=== PATIENT | female | born 1950 | race Caucasian/White ===

== ENCOUNTER → 2016-04-30 | Outpatient (CLI) | payer MEDICARE, BC ==
[~2016-04-30] MED LIST: BENADRYL25 M2; CALCIUM 600MG+D1 TAB PO; CARDI-OMEGA1000 MG PO; GLUCOSAMINE & C1 CA1 PO; HCTZ 25MG TAB25 MG; HCTZ 25MG TAB25 MG PO; IBU600 MG; MOTRIN 800800 MG/TAB PO; MULTI VITAMINS1 TAB PO; MULTIPLE VITAMI1 CAP; OMEGA-3 FISH1200 MG; PREMARIN .3MG0.3 MG; PREMARIN VAG42.5 GM VG; SYNTHROID0.1 MG/TAB PO; SYNTHROID0.125 MG/T; TIROSINT125 MCG; VITAMIN C500 MG PO; VITAMIN D1000 IU; VITAMIN D1000 IU PO; ZANTAC 150MG T150 MG
== END ==
LOC: MC.RAD 13:40
DX: Z12.31 Encounter for screening mammogram for malignant neoplasm of breast (principal); N64.89 Other specified disorders of breast

== ENCOUNTER → 2016-05-04 | Outpatient (CLI) | payer MEDICARE, BC | LOC: MC.RAD 13:30 | DX: R92.8 Other abnormal and inconclusive findings on diagnostic imaging of breast (principal) ==

== ENCOUNTER → 2016-10-25 | Outpatient (CLI) | payer MEDICARE, BC | LOC: MC.RAD 12:55 | DX: R92.2 Inconclusive mammogram (principal) ==

== ENCOUNTER → 2017-05-20 | Outpatient (CLI) | payer MEDICARE, BC | LOC: MC.RAD 14:36 | DX: Z12.31 Encounter for screening mammogram for malignant neoplasm of breast (principal) ==

== ENCOUNTER → 2017-08-03 | Outpatient (CLI) | payer MEDICARE, BC | LOC: COL.VAS 08:46 | DX: I34.0 Nonrheumatic mitral (valve) insufficiency (principal); R93.1 Abnormal findings on diagnostic imaging of heart and coronary circulation ==

== ENCOUNTER 2017-11-14 03:34 | Emergency (ER) | payer MEDICARE, BC ==
[~2017-11-14] VITALS: Ht 167.6 cm; Wt 81.8 kg
[2017-11-14 03:39] VITALS: TEMP 97.6
[2017-11-14] MEDS ORDERED: SYNTHROID0.137 MG PO (04:07)
[2017-11-14] MEDS ORDERED: IBU600 MG PO (04:08)
[2017-11-14] MEDS ORDERED: ZANTAC 150MG T150 MG PO (04:08)
[2017-11-14] MEDS ORDERED: TYLENOL W/COD1 UDTAB PO (06:45)
[2017-11-14] MEDS ORDERED: NORCO 325 MG-51 TAB PO (07:14)
[2017-11-14 07:22] VITALS: BP 132/63; PULSE 77
== END 2017-11-14 07:15 | disposition home or self-care (01) ==
LOC: COL.ER 03:34
DX: S43.005A Unspecified dislocation of left shoulder joint, initial encounter (principal); E03.9 Hypothyroidism, unspecified; W01.0XXA Fall on same level from slipping, tripping and stumbling without subsequent striking against object, initial encounter; Y92.009 Unspecified place in unspecified non-institutional (private) residence as the place of occurrence of the external cause
CPT/HCPCS: J1170; J1885; J2405; J2704; J3010; J7120

== ENCOUNTER 2018-02-15 15:45 | Outpatient (RCR) | payer MEDICARE, BC ==
[~2018-02-15 15:45] MED LIST changes: +IBU600 MG PO; +NORCO 325 MG-51 TAB PO; +SYNTHROID0.137 MG PO; +TYLENOL W/COD1 UDTAB PO; +ZANTAC 150MG T150 MG PO
== END 2018-02-17 16:26 | disposition home or self-care (01) ==
LOC: WSC 15:45
DX: S43.015D Anterior dislocation of left humerus, subsequent encounter (principal)
CPT/HCPCS: G8987-GP; G8988-GP

== ENCOUNTER 2018-02-17 15:20 | Outpatient (RCR) | payer MEDICARE, BC | END 2018-02-17 16:29 | disposition home or self-care (01) | LOC: WSPT 15:20 | DX: Z01.818 Encounter for other preprocedural examination (principal) | CPT/HCPCS: G8984-GP; G8985-GP ==

== ENCOUNTER 2018-05-22 09:00 | Outpatient (RCR) | payer MEDICARE, BC | END 2018-05-28 | disposition home or self-care (01) | LOC: WSC | DX: S43.005D Unspecified dislocation of left shoulder joint, subsequent encounter (principal) | CPT/HCPCS: G8984-GP; G8985-GP ==

== ENCOUNTER → 2018-06-19 | Outpatient (CLI) | payer MEDICARE, BC | LOC: MC.RAD 09:05 | DX: Z12.31 Encounter for screening mammogram for malignant neoplasm of breast (principal) ==

== ENCOUNTER 2018-07-12 09:45 | Outpatient (RCR) | payer MEDICARE, BC | END 2018-08-27 | disposition still patient (30) | LOC: WSC | DX: Z47.89 Encounter for other orthopedic aftercare (principal) ==

== ENCOUNTER 2019-01-16 12:59 | Outpatient (RCR) | payer MEDICARE, BC | END 2019-02-13 13:40 | disposition home or self-care (01) | LOC: WSC 12:59 | DX: Z48.89 Encounter for other specified surgical aftercare (principal); Z98.890 Other specified postprocedural states ==

== ENCOUNTER → 2019-10-03 | Outpatient (CLI) | payer MEDICARE, BC | LOC: MC.RAD 13:49 | DX: Z12.31 Encounter for screening mammogram for malignant neoplasm of breast (principal) ==

== ENCOUNTER → 2019-10-04 | Outpatient (CLI) | payer MEDICARE, BC | LOC: COL.CARD 07:21 | DX: R00.2 Palpitations (principal) ==

== ENCOUNTER 2020-07-12 13:32 | Inpatient (IN) | payer MEDICARE, BC ==
[~2020-07-12] VITALS: Ht 167.6 cm; Wt 73.2 kg
[2020-07-12] VITALS (297 sets, daily range): BP systolic 102–128; BP diastolic 69–73; PULSE 80–130; TEMP 98–98.2; O2SAT 81–100
[2020-07-12 14:11] LABS: BASO # 0.1 (0.0-0.2); BASO % 1.6 % (0.0-2.0); EOS # 0.6 (0.0-0.7); EOS % 7.4 % (0-4.0); GRAN # 3.3 (1.4-6.5); GRAN % 41.4 % (42.2-75.2); HEMATOCRIT 39.5 % (37.0-47.0); HEMOGLOBIN 12.8 g/dl (12.5-16.0); LYMPH # 3.3 (1.2-3.4); LYMPH % 41.3 % (20.0-51.0); MEAN CELL VOLUME 95 fl (80.0-100.0); MEAN CORPUSCULAR HEMOGLOBIN 31 pg (27.0-31.0); MEAN CORPUSCULAR HGB CONC 32 g/dl (33.0-37.0); MEAN PLATELET VOLUME 10.5 fl (7.4-10.4); MONO # 0.6 (0.1-0.6); PLATELET COUNT 323 K/mm3 (130-400); RED BLOOD COUNT 4.18 M/mm3 (4.10-5.30)
[2020-07-12 14:13] LABS: INR 0.9 (0.8-3.0); PROTHROMBIN TIME 10.1 SECONDS (9.7-12.8)
[2020-07-12 14:16] LABS: PARTIAL THROMBOPLASTIN TIME 29.7 SECONDS (26.0-37.0)
[2020-07-12 14:18] LABS: ALANINE AMINOTRANSFERASE 38 U/L (4-34); ALBUMIN 4.3 gm/dL (3.5-5.0); ALKALINE PHOSPHATASE 149 U/L (50-136); ANION GAP 10 mmol/L (7-16); AST,SGOT 43 U/L (15-37); BILIRUBIN,TOTAL 0.4 mg/dL (0.0-1.0); BLOOD UREA NITROGEN 27 mg/dL (7-17); CALCIUM 10.2 mg/dL (8.4-10.2); CARBON DIOXIDE 26 mmol/L (22-30); CHLORIDE 102 mmol/L (98-107); CREATININE, serum 0.97 (0.52-1.25); GLUCOSE 113 mg/dL (74-106); POTASSIUM 3.8 mmol/L (3.4-5.0); SODIUM 138 mmol/L (137-145); TOTAL PROTEIN 8.4 gm/dL (6.4-8.2)
[2020-07-12] MEDS ORDERED: PEPCID 20MG TAB20 MG PO (14:23)
[2020-07-12] MEDS ORDERED: LIPITOR 40MG TA40 MG PO (14:24)
[2020-07-12] MEDS ORDERED: MELATONIN5 M1 SL (14:25)
[2020-07-12] MEDS ORDERED: TYLENOL 500MG500 MG PO (14:25)
[2020-07-12 14:39] LABS: TROPONIN-I < 0.012 ng/mL (0.000-0.035)
--- NOTE | 2020-07-12 17:15 | NUR ---
Patient transported from ER via cart. Ambulated to bed with assistance of cane. Eyeglasses in place. Patient is alert and oriented. at bedside. Patient denies any pain or discomfort at this time. Cardizem drip infusing into right AC at max dose of 15mg. Heart rate ranges from 90-130's at this time. Heart sounds irregular, lung sounds clear bilaterally, bowel sounds audible. SpO2 100% on room air. Patient states she is hungry, dinner tray ordered. Call abad within reach, all safety maintained. Will continue to monitor.
[2020-07-13] VITALS (378 sets, daily range): BP systolic 118–133; BP diastolic 61–78; PULSE 67–85; TEMP 98–98.6; O2SAT 52–100
[2020-07-13 05:38] LABS: BASO # 0.1 (0.0-0.2); BASO % 1.4 % (0.0-2.0); EOS # 0.3 (0.0-0.7); EOS % 4.2 % (0-4.0); GRAN # 3.2 (1.4-6.5); GRAN % 43.6 % (42.2-75.2); HEMOGLOBIN 11.6 g/dl (12.5-16.0); LYMPH # 3.1 (1.2-3.4); LYMPH % 42.6 % (20.0-51.0); MEAN CELL VOLUME 94 fl (80.0-100.0); MEAN CORPUSCULAR HEMOGLOBIN 30 pg (27.0-31.0); MEAN CORPUSCULAR HGB CONC 32 g/dl (33.0-37.0); MEAN PLATELET VOLUME 10.1 fl (7.4-10.4); MONO # 0.6 (0.1-0.6); MONO % 8.1 % (1.7-9.3); PLATELET COUNT 282 K/mm3 (130-400); RED BLOOD COUNT 3.82 M/mm3 (4.10-5.30)
[2020-07-13 05:49] LABS: CALCIUM 9.9 mg/dL (8.4-10.2); CREATININE, serum 0.81 (0.52-1.25); POTASSIUM 3.8 mmol/L (3.4-5.0)
[2020-07-13] MEDS ORDERED: SYNTHROID0.125 MG/T PO ×3 (11:12→11:26)
[2020-07-13] MEDS ORDERED: TAMBOCOR 1100 MG/TAB PO (11:26)
[2020-07-13] MEDS ORDERED: TOPROL XL 50MG50 MG PO (11:26)
[2020-07-13] MEDS ORDERED: ELIQUIS 5MG PO (11:26)
--- NOTE | 2020-07-13 11:50 | NUR ---
DISCHARGE PACKET AND EDUCATION REVIEWED. PATIETN AND VERBALIZE UNDERSTANDING. DR. FRANCO'S OFFICE TO CALL HER TOMORROW WITH FOLLOW UP APPT INFORMATION. PATIENT AMBULATES OUT TO CAR FROM ICU ROOM.
== END 2020-07-13 11:45 | disposition home or self-care (01) | DRG 310 ==
LOC: COL.ER 13:32 → ICU 15:32
PROVIDERS: Family Medicine
DX: I48.0 Paroxysmal atrial fibrillation (principal); E03.9 Hypothyroidism, unspecified; I10 Essential (primary) hypertension

== ENCOUNTER → 2020-12-31 | Outpatient (CLI) | payer MEDICARE, BC ==
[~2020-12-31] MED LIST changes: +ELIQUIS 5MG PO; +LIPITOR 40MG TA40 MG PO; +MELATONIN5 M1 SL; +PEPCID 20MG TAB20 MG PO; +SYNTHROID0.125 MG/T PO; +TAMBOCOR 1100 MG/TAB PO; +TOPROL XL 50MG50 MG PO; +TYLENOL 500MG500 MG PO
== END ==
LOC: COL.RAD 07:03
DX: K80.20 Calculus of gallbladder without cholecystitis without obstruction (principal)

== ENCOUNTER 2021-01-07 14:45 | Outpatient (RCR) | payer MEDICARE, BC | END 2021-01-08 | disposition home or self-care (01) | LOC: PT.GENESIS | DX: S76.011A Strain of muscle, fascia and tendon of right hip, initial encounter (principal); E78.5 Hyperlipidemia, unspecified; M17.9 Osteoarthritis of knee, unspecified; K21.9 Gastro-esophageal reflux disease without esophagitis; E03.9 Hypothyroidism, unspecified ==

== ENCOUNTER → 2021-01-09 | Outpatient (CLI) | payer MEDICARE, BC | LOC: MC.RAD 10:22 | DX: Z12.31 Encounter for screening mammogram for malignant neoplasm of breast (principal) ==

== ENCOUNTER 2021-08-14 07:27 | Outpatient (CLI) | payer MEDICARE, BC ==
[~2021-08-14] VITALS: Ht 167.6 cm; Wt 78.2 kg
[2021-08-14 08:34] VITALS: BP 123/73; PULSE 68; TEMP 98.4
[2021-08-14 08:38] LABS: HEMOGLOBIN 11.7 g/dl (12.5-16.0); MEAN CELL VOLUME 97 fl (80.0-100.0); MEAN CORPUSCULAR HEMOGLOBIN 32 pg (27-31); MEAN CORPUSCULAR HGB CONC 33 g/dl (33.0-37.0); MEAN PLATELET VOLUME 9.6 fl (7.4-10.4); PLATELET COUNT 346 K/mm3 (130-400); RED BLOOD COUNT 3.68 M/mm3 (4.10-5.30); REDCELL DISTRIBUTION WIDTH-CV 12.8 % (11.5-14.5)
[2021-08-14 08:39] LABS: HEMATOCRIT 35.5 % (37.0-47.0)
[2021-08-14 08:43] LABS: INR 1.1 (0.8-3.0); PROTHROMBIN TIME 12.5 SECONDS (9.7-12.8)
[2021-08-14 08:50] LABS: CALCIUM 9.3 mg/dL (8.4-10.2); CREATININE, serum 1.06 mg/dL (0.57-1.11); POTASSIUM 3.9 mmol/L (3.5-4.5)
[2021-08-14] MEDS ORDERED: COLACE 100100 MG/CAP PO (09:05)
[2021-08-14] MEDS ORDERED: PRIL40 PO (09:06)
[2021-08-14] MEDS ORDERED: NASACORT OTC NS (09:09)
[2021-08-14] MEDS ORDERED: CALCIUM 600 MG1 EAC2 PO (09:13)
[2021-08-14 10:20] VITALS: BP 119/67; PULSE 64
--- NOTE | 2021-08-14 10:20 | NUR ---
VS RIGHT AFTER PROCEDURE, PT ANSWERS TO NAME, STAFF AT BEDSIDE
[2021-08-14 10:30] VITALS: BP 119/60; PULSE 70
[2021-08-14 10:45] VITALS: BP 119/58; PULSE 62
[2021-08-14 11:00] VITALS: BP 119/56; PULSE 59
[2021-08-14 11:15] VITALS: BP 135/62; PULSE 65
--- NOTE | 2021-08-14 11:26 | NUR ---
IV CATHETHER REMOVED WITH TIP INTACT, PRESSURE APPLIED THEN DRESSED WITH GAUZE AND COBAN. PT TOLERATED SWALLOWING WATER WITHOUT COMPLICATION. PT AMBULATED TO BSC WITHOUT ASSISTANCE, STEADY GAIT WITH CANE. DISCHARGE PAPERWORK DISCUSSED WITH PT AND , VERBALIZED UNDERSTANDING, QUESTIONS ANSWERED. PT DISCHARGED VIA WHEELCHAIR, ESCORTED PT TO CAR. PT TOLERATED PROCEDURE WELL. PT REPORTS NO PAIN.
== END 2021-08-14 11:26 | disposition home or self-care (01) ==
LOC: COL.RAD 07:27
PROVIDERS: Internal Medicine Cardiovascular Disease
DX: I48.0 Paroxysmal atrial fibrillation (principal); E05.90 Thyrotoxicosis, unspecified without thyrotoxic crisis or storm; I10 Essential (primary) hypertension; Z79.01 Long term (current) use of anticoagulants; Z91.81 History of falling
CPT/HCPCS: J2704

== ENCOUNTER 2021-10-07 11:52 | Outpatient (CLI) | payer MEDICARE, BC ==
[~2021-10-07] VITALS: Ht 167.8 cm; Wt 78.4 kg
[2021-10-07] VITALS (8 sets, daily range): BP systolic 117–133; BP diastolic 57–97; PULSE 53–67; TEMP 97.7
[~2021-10-07 11:52] MED LIST changes: +CALCIUM 600 MG1 EAC2 PO; +COLACE 100100 MG/CAP PO; +NASACORT OTC NS; +PRIL40 PO
[2021-10-07 12:21] LABS: HEMATOCRIT 35.4 % (37.0-47.0); HEMOGLOBIN 11.5 g/dl (12.5-16.0); MEAN CELL VOLUME 98 fl (80.0-100.0); MEAN CORPUSCULAR HEMOGLOBIN 32 pg (27-31); MEAN CORPUSCULAR HGB CONC 33 g/dl (33.0-37.0); MEAN PLATELET VOLUME 9.8 fl (7.4-10.4); PLATELET COUNT 326 K/mm3 (130-400); RED BLOOD COUNT 3.62 M/mm3 (4.10-5.30); REDCELL DISTRIBUTION WIDTH-CV 13.1 % (11.5-14.5)
[2021-10-07 12:27] LABS: INR 1.2 (0.8-3.0); PROTHROMBIN TIME 13.8 SECONDS (9.7-12.8)
[2021-10-07] MEDS ORDERED: ELIQUIS 5MG PO (12:27)
[2021-10-07] MEDS ORDERED: TAMBOCOR50 MG PO (12:30)
[2021-10-07] MEDS ORDERED: SYNTHROID0.112 MG/T PO (12:31)
[2021-10-07] MEDS ORDERED: TOPROL XL 50MG50 MG PO (12:33)
[2021-10-07 12:37] LABS: CALCIUM 9.7 mg/dL (8.4-10.2); CREATININE, serum 0.96 mg/dL (0.57-1.11)
[2021-10-07] MEDS ORDERED: ASPIRIN E.C. 8181 MG PO (12:37)
[2021-10-07] MEDS ORDERED: ULTRAM 50MG TAB50 MG PO (12:38)
[2021-10-07] MEDS ORDERED: ESTRACE0.1 MG/GM VG (12:39)
--- NOTE | 2021-10-07 13:50 | NUR ---
report given to Emilia MOCTEZUMA, pt is awake and alert, sits up in bed, in room, call light in reach
[2021-10-07] MEDS ORDERED: PLAVIX 75MG TAB75 MG PO (13:52)
--- NOTE | 2021-10-07 15:27 | NUR ---
Pt escorted out via wheelchair by Alberto Nieto.
== END 2021-10-07 15:25 | disposition home or self-care (01) ==
LOC: COL.RAD 11:52
PROVIDERS: Internal Medicine Cardiovascular Disease
DX: I48.91 Unspecified atrial fibrillation (principal)
CPT/HCPCS: J2704; J7120

== ENCOUNTER 2022-06-07 11:15 | Outpatient (RCR) | payer MEDICARE, BC ==
[~2022-06-07 11:15] MED LIST changes: +ASPIRIN E.C. 8181 MG PO; +ESTRACE0.1 MG/GM VG; +PLAVIX 75MG TAB75 MG PO; +SYNTHROID0.112 MG/T PO; +TAMBOCOR50 MG PO; +ULTRAM 50MG TAB50 MG PO
== END 2022-06-15 | disposition home or self-care (01) ==
LOC: WSOT
DX: S63.29 Dislocation of distal interphalangeal joint of finger (principal); X58.XXXD Exposure to other specified factors, subsequent encounter

== ENCOUNTER → 2023-04-20 | Outpatient (CLI) | payer MEDICARE, BC | LOC: MC.RAD 12:49 | DX: Z12.31 Encounter for screening mammogram for malignant neoplasm of breast (principal) ==